=== PATIENT | female | born 1975 | race American Indian/Alaskan Native ===

== ENCOUNTER 2016-11-24 15:44 | Outpatient (CLI) | payer BC ==
--- NOTE | 2016-11-24 16:26 | Ultrasound Report ---
LEFT BREAST ULTRASOUND: 11/24/16 15:44:00 CLINICAL: Palpable left breast lump. COMPARISON: Bilateral screening mammogram 05/28/16 FINDINGS: Ultrasound of the left breast(including all four quadrants and the retroareolar area) was performed and demonstrated a solid oval hypoechoic mass at 2 o'clock 8 cm from the nipple. It measures 7 x 6 x 7 mm and correlates with the palpable lump described by the patient. No other mass or cyst. IMPRESSION: A solid 7 mm left breast mass at 2 o'clock. BI-RADS 4--Suspicious RECOMMENDATION: Ultrasound guided needle core biopsy of the left breast. I discussed the findings and the recommendation for needle core biopsy with the patient at the time of the examination.
== END 2016-11-24 15:45 | disposition home or self-care (01) ==
LOC: SPVWC 15:44
PROVIDERS: ATTEND Internal Medicine
DX: N63 Unspecified lump in breast (principal)

== ENCOUNTER 2020-10-20 09:48 | Outpatient (CLI) | payer BC ==
--- NOTE | 2020-10-21 09:39 | Mammography Report ---
DIGITAL SCREENING MAMMOGRAM WITH CAD, 10/21/2020 CLINICAL INFORMATION / INDICATION: Routine screening mammography. TECHNIQUE: Digital bilateral 2D mammography was obtained in the craniocaudal and mediolateral obliqu e projections. This examination was interpreted with the benefit of Computer-Aided Detection analysis . COMPARISON: 01/17/2017, 09/09/2016, 05/28/2016 FINDINGS: Breast Density: The breasts are heterogeneously dense, which may obscure small masses. No dominant mass, suspicious calcifications, or architectural distortion in either breast. There is a biopsy clip in the upper outer larger posterior depth of the left breast. IMPRESSION: No mammographic evidence of malignancy. Follow up recommendation: Routine yearly BI-RADS Category 2: Benign. A "normal" or negative report should not discourage follow up or biopsy of a clinically significant f inding. A written summary of these findings will be mailed to the patient. The patient will be entered into a mammography reporting system which will generate a reminder letter for the patient's next appointmen t at the appropriate interval. The [employer] recommends yearly mammograms starting at age 40 and continuing as l [place] as a woman is in good health. Breast MRI is recommended for women with an approximate 20-25% or greater lifetime risk of breast cancer, including women with a strong family history of breast or ova blair cancer or who have been treated for Hodgkin's disease. Signer Name: Leonardo Steve MD Signed: 10/21/2020 9:35 AM Workstation Name: [id number]
== END 2020-10-20 09:49 | disposition home or self-care (01) ==
LOC: SPVWC 09:48
PROVIDERS: ATTEND Internal Medicine
DX: Z12.31 Encounter for screening mammogram for malignant neoplasm of breast (principal)
CPT/HCPCS: 77067

== ENCOUNTER 2022-05-11 13:03 | Outpatient (CLI) | payer BC ==
--- NOTE | 2022-05-13 10:11 | Mammography Report ---
DIGITAL SCREENING MAMMOGRAM WITH CAD, 05/11/2022 CLINICAL INFORMATION / INDICATION: Routine screening mammography TECHNIQUE: Digital 2D mammography was obtained in the craniocaudal and mediolateral oblique projectio ns. This examination was interpreted with the benefit of Computer-Aided Detection analysis. COMPARISON: 10/20/2020 FINDINGS: Breast Density: The breasts are heterogeneously dense, which may obscure small masses. No dominant mass, suspicious calcifications, or architectural distortion in the left breast. Left biopsy changes again seen. Increasing density far posterior medial right breast on cc views only . IMPRESSION: Increasing density on the right. Follow up recommendation: Right spot compression views and ultrasound if needed BI-RADS Category 0: INCOMPLETE. Needs additional imaging evaluation and/or prior mammograms for ralph lieberman. A "normal" or negative report should not discourage follow up or biopsy of a clinically significant f inding. A written summary of these findings will be mailed to the patient. The patient will be entered into a mammography reporting system which will generate a reminder letter for the patient's next appointmen t at the appropriate interval. The [employer] recommends yearly mammograms starting at age 40 and continuing as l [place] as a woman is in good health. Breast MRI is recommended for women with an approximate 20-25% or greater lifetime risk of breast cancer, including women with a strong family history of breast or ova blair cancer or who have been treated for Hodgkin's disease. Signer Name: Alonso Salmeron MD Signed: 05/13/2022 10:07 AM Workstation Name: [email or web address]
== END 2022-05-11 13:04 | disposition home or self-care (01) ==
LOC: SPVWC 13:03
PROVIDERS: ATTEND Internal Medicine
DX: Z12.31 Encounter for screening mammogram for malignant neoplasm of breast (principal)
CPT/HCPCS: 77067

== ENCOUNTER 2022-05-28 13:02 | Outpatient (CLI) | payer BC ==
--- NOTE | 2022-05-28 14:42 | Mammography Report ---
RIGHT DIGITAL DIAGNOSTIC MAMMOGRAM CONVENTIONAL, 05/28/2022 RIGHT LIMITED BREAST ULTRASOUND CLINICAL INFORMATION / INDICATION: Follow-up of developing density in the right breast seen on recent screening mammogram. R92.8 TECHNIQUE: Digital mammographic imaging was performed. COMPARISON: FINDINGS: Breast Density: The breast is heterogeneously dense, which may obscure small masses. MAMMOGRAPHIC FINDINGS: On spot compression views, the previously reported posterior inner right breas t density partially improves. No new significant abnormality is identified. ULTRASOUND FINDINGS: Targeted ultrasound evaluation was performed of the area of interest. In the 4 :00 right breast 5 cm from the nipple at the expected location of the previously reported density is a complicated cyst versus mass measuring up to 6.2 x 3.9 mm. Another hypoechoic lesion of similar hilton earance is seen 3 cm from the nipple in the 4:00 position measuring 4.2 x 2.3 mm. Additional nonspeci fic hypoechoic structures are seen anteriorly along the retroareolar region. Some of these structures have a tubular shape, possibly representing ducts. However, I do not see any correlative ductal ecta neno on the prior mammograms. These findings could represent islands of asymmetric dense fibroglandula r tissue. No other significant abnormality. IMPRESSION: 1. Complicated cysts versus nodules in the 4:00 right breast at the site of the recently described de nsity should be further evaluated with ultrasound-guided cyst aspiration versus biopsy. 2. Additional nonspecific retroareolar findings detailed above are favored to be benign and should be reevaluated by limited right breast ultrasound in 6 months. Follow up recommendation: Biopsy BI-RADS Category 4: SUSPICIOUS FOR MALIGNANCY. A "normal" or negative report should not discourage follow up or biopsy of a clinically significant f inding. A written summary of these findings will be mailed to the patient. The patient will be entered into a mammography reporting system which will generate a reminder letter for the patient's next appointmen t at the appropriate interval. According to the [employer], yearly mammograms are recommended starting at age 40 and continuing as long as a woman is in good health. Breast MRI is recommended for women with an hilton roximately 20-25% or greater lifetime risk of breast cancer, including women with a strong family his tory of breast or ovarian cancer and women who have been treated for Hodgkin's disease. Signer Name: Leoanrdo Steve MD Signed: 05/28/2022 2:38 PM Workstation Name: [email or web address]
== END 2022-05-28 13:03 | disposition home or self-care (01) ==
LOC: MAMMO 13:02
PROVIDERS: ATTEND Internal Medicine
DX: R92.8 Other abnormal and inconclusive findings on diagnostic imaging of breast (principal)